=== PATIENT | male | born 1955 | race Caucasian/White ===

== ENCOUNTER 2018-03-07 07:40 | Day surgery (SDC) | payer OTHER ==
[2018-03-06 15:26] LABS: HEMOGLOBIN 15.9 g/dL (13.5-17.5); MCH 30.2 pg (26.0-34.0); MCHC 34.6 g/dL (31.0-37.0); MCV 87.5 fL (80.0-100.0); MEAN PLATELET VOLUME 10.3 fL (7.4-10.4); RBC 5.26 10x6/uL (4.20-6.10)
[~2018-03-07] VITALS: Ht 170.2 cm; Wt 92.1 kg
--- NOTE | ~2018-03-07 | OP ---
PATIENT NAME: SERGIO PAULINO MEDICAL RECORD: [id number] :59 LOCATION:[facility] ADMISSION DATE: SURGEON: LOVE SHAH DPM DATE OF OPERATION: 03/07/2018 PREOPERATIVE DIAGNOSES: 1. Equinus, left leg. 2. Calcaneal spur, left foot. 3. Achilles tendon disruption, left foot. POSTOPERATIVE DIAGNOSES: 1. Equinus, left leg. 2. Calcaneal spur, left foot. 3. Achilles tendon disruption, left foot. PROCEDURES: 1. Gastroc recession, left leg. 2. Calcaneal spur removal, left foot. 3. Achilles tendon repair, left foot. ANESTHESIA: General with preoperative popliteal block per the anesthesia department. HEMOSTASIS: Left thigh tourniquet at 350 mmHg. PREOPERATIVE DETAILS: The patient was taken to the OR and following induction of general anesthesia, the patient was placed on the operating table in a prone position. The left extremity was then prepped and draped in usual aseptic technique followed by exsanguination and inflation of tourniquet. PROCEDURE #1: Gastroc recession, left leg: A 15-blade was used to create a 4-cm linear incision over the posterior aspect of the left gastroc aponeurosis. The incision was deepened down bluntly through subcutaneous tissue being sure to avoid the sural nerve and vein. Dissection was carried down to the paratenon where a linear incision was made, freeing the aponeurosis. With leg held in dorsiflexion, a cut was made. A V-cut was made through the aponeurosis allowing adequate dorsiflexion of the ankle joint. The wound was flushed. The skin was then closed with skin nadia. PROCEDURE #2: Calcaneal spur removal, left foot, posterior aspect: A 15 blade was used to create a 4-cm linear incision over the posterior aspect of the left heel. The incision was deepened down through subcutaneous tissue to the Achilles tendon, which was resected from the posterior aspect of the calcaneus noting a significant intratendinous calcification and spurring of the calcaneus. At this time, a sagittal saw was used to resect the calcaneal spur followed by rongeuring and bone rasp. PROCEDURE #3: Achilles tendon repair, left foot: Utilizing suture bridge technique with 4 anchors, the Achilles tendon was repaired back to the calcaneus in a rigid internal fixation technique with excellent repair and strength. A 2-0 Vicryl was then used to repair the paratenon and closed the deep tissue, 4-0 Rapide was used to close the subcutaneous tissue as well as to close the skin in a subcuticular technique followed by Dermabond. Adaptic, 4 x 4, and Conform were used to dress the wounds followed by application of modified Sanz compression dressing. Tourniquet was deflated. OPERATIVE REPORT [id number] SERGIO PAULINO POSTOPERATIVE DETAILS: The patient tolerated the procedures well and left the OR with vital signs stable and vascular status at preoperative levels. The patient was transported to recovery per anesthesia in stable condition. TRANSINT:[id number] Voice Confirmation ID: [id number] DOCUMENT ID: [id number] LOVE SHAH DPM at 0743 CC: [id number] DICTATION DATE: 03/07/18 1118 NURSE SANE: 03/07/18 1231 [facility] 03/07/[address] [id number]
[~2018-03-07 07:40] MED LIST: "\\\"BP MED\\\"" PO; HYDROCODONE-APA1 TAB PO; IBUPROFEN800 MG PO
[2018-03-07 07:56] VITALS: BP 138/80; Ht 170.2 cm; Wt 92.1 kg
== END 2018-03-07 14:50 | disposition home or self-care (01) ==
LOC: D.OPS 07:40 → D.PAN 09:45 → D.OPS 09:45
PROVIDERS: Anesthesiology
DX: M21.542 Acquired clubfoot, left foot (principal); M77.32 Calcaneal spur, left foot; S86.012A Strain of left Achilles tendon, initial encounter; X58.XXXA Exposure to other specified factors, initial encounter